=== PATIENT | male | born 1975 | race Two or more races ===

== ENCOUNTER 2017-01-01 10:34 | Day surgery (SDC) | payer OTHER ==
[2016-12-31 16:38] VITALS: Ht 170.2 cm; Wt 109.0 kg
[2017-01-01] VITALS (14 sets, daily range): BP systolic 101–118; BP diastolic 62–76; PULSE 84–92; RESP 15–19
[~2017-01-01] VITALS: Ht 170.2 cm; Wt 109.0 kg
[~2017-01-01 10:34] MED LIST: CEFAZOLIN 2 GM/50 ML (PMX) 50 ML IVPB ONE; CEFAZOLIN 2 GM/50 ML (PMX) 50 ML IVPB SCH; EPHEDrine SULFATE 50 MG/5 ML SYG ONE
[2017-01-01] MEDS ORDERED: AMLO-147 PO (12:21)
[2017-01-01] MEDS ORDERED: HYDR12.58 PO (12:22)
[2017-01-01] MEDS ORDERED: ISOS30TA5 PO (12:22)
[2017-01-01] MEDS ORDERED: ATOR10TA65 PO (12:22)
[2017-01-01] MEDS ORDERED: METOPROLOL PO (12:22)
[2017-01-01] MEDS ORDERED: LOSA1TAB21 PO (12:22)
[2017-01-01 12:28] LABS: ADD UMIC YES; URINE BILIRUBIN (Dip) NEGATIVE (NEGATIVE); URINE BLOOD (Dip) 2+ (NEGATIVE); URINE COLOR LT. YELLOW (YELLOW); URINE GLUCOSE (Dip) NEGATIVE (NEGATIVE); URINE KETONES (Dip) NEGATIVE (NEGATIVE); URINE LEUKOCYTE ESTERASE (Dip) NEGATIVE (NEGATIVE); URINE NITRITE (Dip) NEGATIVE (NEGATIVE); URINE TOTAL PROTEIN (Dip) NEGATIVE (NEGATIVE); URINE UROBILINOGEN (Dip) 0.2 E.U./dL (0.1-1.0)
--- NOTE | 2017-01-01 12:36 | RADRPT ---
PROCEDURE: Chest Radiograph. CLINICAL INDICATION: Preop for cystoscopy. TECHNIQUE: Single frontal chest radiograph. COMPARISON: None available FINDINGS: The patient is rotated and heart size is poorly evaluated. The cardiomediastinal silhouette is mark sly within normal limits. There is mild elevation of the left hemidiaphragm. No infiltrate or effusi on is seen. The bones are intact. IMPRESSION: 1. No evidence of acute cardiopulmonary disease. 2. Mild elevation left hemidiaphragm. RPTAT: KK .Gómez Wills MD, MD Date Time Electronically viewed and signed by .Gómez Wills MD, on 01/01/2017 12:36 .B/
[2017-01-01] MEDS ORDERED: METOCLOPRAMIDE 10 MG INJ ONE (12:42)
[2017-01-01] MEDS ORDERED: FAMOTIDINE 20 MG INJ ONE (12:42)
[2017-01-01] MEDS ORDERED: MIDAZOLAM 1 MG/ML 2 ML INJ ONE (12:45)
[2017-01-01] MEDS ORDERED: PROPOFOL 20 ML ONE (12:45)
[2017-01-01] MEDS ORDERED: SUCCINYLCHOLINE CHLORIDE 100 MG/5 ML SYG IV ONE (12:45)
[2017-01-01] MEDS ORDERED: LIDOCAINE 2% (SDV) 5 ML INJ ONE (12:45)
--- NOTE | 2017-01-01 12:50 | HPN ---
Date/Time of Note Date/Time of Note DATE: 01/01/17 TIME: 12:50 Interval H&P Admission Note Pt. seen H&P reviewed: No system changes ANDREINA ENRIQUE MD Jan 01, 2017 12:50
[2017-01-01] MEDS ORDERED: CEFAZOLIN 1 GM INJ ONE (13:07)
[2017-01-01] MEDS ORDERED: ONDANSETRON 4 MG INJ ONE (13:11)
[2017-01-01] MEDS ORDERED: DEXAMETHASONE 4 MG/ML 1 ML INJ ONE (13:12)
[2017-01-01] MEDS ORDERED: DIPHENHYDRAMINE 50 MG INJ IV PRN (15:30)
[2017-01-01] MEDS ORDERED: PROCHLORPERAZINE 10 MG INJ IV PRN (15:30)
[2017-01-01] MEDS ORDERED: HYDROCODONE/APAP (5/325) TAB PO PRN (15:30)
[2017-01-01] MEDS ORDERED: MEPERIDINE 25 MG INJ IV PRN (15:30)
[2017-01-01] MEDS ORDERED: HYDROmorphONE (0.2 MG/ML) 10ML SYG IV PRN ×3 (15:30)
[2017-01-01] MEDS ORDERED: FENTAnyl 50 MCG/ML VIAL IV PRN ×3 (15:30)
[2017-01-01] MEDS ORDERED: ONDANSETRON 4 MG INJ IV PRN (15:30)
--- NOTE | 2017-01-01 17:54 | OPR ---
DATE OF OPERATION: 01/01/2017 PREOPERATIVE DIAGNOSIS: Multiple right ureteral stones. POSTOPERATIVE DIAGNOSIS: Multiple right ureteral stones. PROCEDURE PERFORMED: Cystoscopy, right ureteral pyeloscopy, laser lithotripsy and removal of multip le right ureteral stone fragments and insertion of a JJ stent 6-Macedonian x 24 cm long. SURGEON: Steve Coyle MD TECHNIQUE: The patient was brought to the operating room. He was given general anesthesia. Then, he was positioned in the lithotomy position. The patient received 2 grams of Ancef IV at the start of the procedure. Timeout was done. The patient was identified by his name, date, the proce dure and the side of the procedure. The genital area was then prepped and draped in the usual steri le manner. A #21 Macedonian cystoscope sheath was then introduced under direct vision through the penile urethra al l the way to the bladder. Once in the bladder, urine was collected for culture and sensitivity. Th e right ureteral orifice then was identified and cannulated with a 5-Macedonian open-ended ureteral cath eter. Through that, I passed a 0.035 ZIPwire under fluoroscopy and that one could see the stone ove r the sacroiliac area. The wire did go up to the kidney. I removed the open-ended, leaving the ZIP wire in place. Then, reintroduced the 5-Macedonian open-ended through the second working channel and in to the right ureteral orifice. I also advanced inside of it a 0.035 Sensor wire and that was advanc ed all the way up to the kidney as well. At that moment, I removed the cystoscope, leaving the [address] The Sensor wire was used as a safety wire and the ZIPwire was used to advance on it t he long rigid ureteroscope. As the long rigid ureteroscope was advanced, one could reach just about a centimeter below the stone level and the ureter there is very tight, so I could not really reach that to visualize the stones well and break them. Therefore, I decided to use the digital flexible ureteroscope, so I left in the ZIPwire in placed and removed the rigid ureteroscope. Then, on the ZIPwire, I advanced an access sheath 11 x 13 mm outside diameter and 28 cm long. That did go up to the distal part of the right ureter. Through that, I advanced the digital flexible ureteroscope. A s I advanced it, I was able to reach the level of the stones, I visualized the stones and there were at least 3 big ones. Therefore, then I removed the ZIPwire and used the 200 micron laser fiber and did lithotripsy to the stones. I did break them into multiple small pieces. Then, using the 1.9 N itinol Zero Tip basket, I basketed the fragments out. On a couple of occasions, the stone fragment was big that it could not come out, so I had to dislodge it from the basket and then treat it again with the holmium laser to break it further into smaller pieces. I did that at least on a couple of occasions. Once the stone was basketed, the stone was too big to come through the access sheath, but it stayed close to the access sheath, so I pulled the access sheath and the stone and the basket altogether. Then, I used the dual-lumen ureteral catheter to reintroduce initially the ZIPwire and then on that reintroduced the access sheath. At the end, I was able to clear the ureter from all t he stone fragments and I advanced the ureteroscope all the way up to the kidney and some of the ston e fragments did indeed go up to the kidney, even though most of the time I worked without opening th e pressure water so it does not flush the stone fragments back into the kidney. I examined the salvador l pelvis and in the kidney I basketed all the stone fragments that were in the kidney except very sa nd-like fragments that I left alone, the patient should be able to pass them on his own. At the end of the procedure, the whole ureter was inspected and appeared to be intact and clean. Th erefore, I removed the access sheath. Then, I reintroduced the cystoscope on the Sensor wire, which is the safety wire. Then, on the Sensor wire, I advanced a 6-Macedonian x 24 cm long JJ stent, had its proximal end curling into the kidney and the distal end curling into the bladder. The distal end o f the JJ stent was attached to a string that was taped to his penis using 2 pieces of Tegaderm. The patient tolerated the procedure well and was transferred to recovery room in stable and satisfactor y condition. Dictated By: STEVE GONZALEZ/SHELBY Conf#: [id number] [facility]#: [id number]
--- NOTE | 2017-01-01 18:00 | RADRPT ---
PROCEDURE: Intraoperative imaging of the abdomen and pelvis with fluoroscopy. CLINICAL INDICATION: Abdominal pain. Intraoperative. TECHNIQUE: 14 images of the abdomen and pelvis were obtained in the operating room with an image i ntensifier. No radiologist was in attendance. 110.5 seconds of fluoroscopy time was used. COMPARISON: No prior study is available for comparison. FINDINGS: Images demonstrate instrumentation of the right ureter and subsequent placement of a right ureteral double pigtail stent in satisfactory position. IMPRESSION: 1. Satisfactory intraoperative imaging of the abdomen and pelvis. 2. Satisfactory position of right ureteral double pigtail stent. RPTAT: QQ .Herminio Tipton MD, Date Time Electronically viewed and signed by .Herminio Tipton MD, on 01/01/2017 17:59 .R/
== END 2017-01-01 17:30 | disposition home or self-care (01) ==
LOC: SDS 10:34
PROVIDERS: ATTEND Urology
DX: N20.1 Calculus of ureter (principal); I10 Essential (primary) hypertension; E66.9 Obesity, unspecified; Z68.37 Body mass index [BMI] 37.0-37.9, adult
CPT/HCPCS: 52356; 71010; 74430; 81001; 87086; 88300; C2617; J0330; J0690; J1100; J2250; J2405; J2765; Z7512; Z7610; 81003